=== PATIENT | male | born 1950 | race Caucasian/White ===

== ENCOUNTER 2021-01-01 12:00 | Inpatient (IN) | payer OTHER ==
[~2021-01-01] VITALS: Ht 177.8 cm; Wt 84.4 kg
[2021-01-01 12:07] VITALS: BP 153/93
[2021-01-01 13:41] LABS: BE(vivo) -1.4 mmol/L (-2 to +3); HCO3 21.6 mmol/L (22.0-26.0); PCO2 31.5 mmHg (35.0-45.0); PO2 66.9 mmHg (80.0-100.0); pH 7.454 (7.360-7.450); sO2 94.4 % (92.0-98.0)
[2021-01-01] MEDS ORDERED: NORVASC10 MG PO (14:14)
[2021-01-01] MEDS ORDERED: VITAMIN D310 MC2 PO (14:19)
[2021-01-01] MEDS ORDERED: LISINOPRIL20 MG PO (14:19)
[2021-01-01] MEDS ORDERED: ATENOLOL 100MG100 MG PO (14:20)
[2021-01-01 15:25] VITALS: BP 157/96
--- NOTE | 2021-01-01 19:20 | NUR ---
PT TRANSURED FROM [facility] WITH RESP ISSUES. PT ORINETED TO UNIT AND BED SPACE. MEDS PER SEP - ASSESSMENT CHARTED - GIVEN TYLENOL FOR "LOSENING CHEST CONGESTION " PT STATED IT HELPS. TEX DIET AND FLUIDS. NO CO'S OF NASUEA. PT HAS BEEN VOIDING PER URINAL. WOFE AT THE BEDSIDE. NO CO'S AT THE PRESENT TIME.
[2021-01-01 19:52] VITALS: BP 147/80
[2021-01-01 23:33] VITALS: BP 148/75
[2021-01-02] VITALS (47 sets, daily range): BP systolic 95–159; BP diastolic 63–91
--- NOTE | 2021-01-02 01:11 | NUR ---
ASSUMED PT CARE AT [facility] OF SHIFT, ALERT AND ORIENTED, SR ON TELE, DENIES PAIN, ASSESSMENTS CHARTED, PT ON 10L HIGH FLOW NASAL CANULA, NOTIFIED THE PROVIDER, ORDERS RECEIVED FOR SCHEDULED BREATHING TX, PT NOTED TO HAVE O2SAT OF 87 ON 10L, PUT ON 12L WITH MINIMAL IMPROVEMENT, RT MADE AWARE AND BT GIVEN, PT WAS THEN PUT ON OPTIFLOW ON 40L, WITH FIO2 OF 67, DR CAMARGO NOTIFIED, ORDER FOR BIPAP PRN AND TRANSFER TO ICU RECEIVED, PT IS LAYING DOWN IN BED WITH NO DISTRESS, REPORT CALLED TO NURSE RECEIVING PT; PT TRANFERRED TO ROOM 240 WITH ALL BELONGINGS
[2021-01-02 04:34] LABS: HEMATOCRIT 36.8 % (42.0-52.0); HEMOGLOBIN 12.4 gm/dL (14.0-18.0); MCH 31.9 pg (26.0-34.0); MCHC 33.7 g/dL (28.0-37.0); MCV 94.8 fL (80.0-100.0); PLATELET COUNT 422 thou/uL (150-400); RBC 3.88 mil/uL (4.50-6.00); RDW 13.8 % (10.5-14.5); WBC 23.6 thou/uL (4.0-11.0)
[2021-01-02 05:10] LABS: CALCIUM 9.4 mg/dL (8.5-10.1); CREATININE 1.4 mg/dL (0.7-1.3); MAGNESIUM 2.1 mg/dL (1.8-2.4); POTASSIUM 4.1 mmol/L (3.5-5.1)
[2021-01-02 05:33] LABS: ABSOLUTE NEUTROPHILS 22.4 thou/uL (1.4-8.2); MYELOCYTES 1 %
--- NOTE | 2021-01-02 07:15 | NUR ---
PATIENT ARRIVED AT THE UNIT AT APPROX 0130. PATIENT IS A/OX4. DENIES PAIN. REMAINS ON OPTI-FLOW WITH SATS>94. AFEBRILE.VSS. FAMILY UPDATED. USES URINAL AT BEDSIDE. DENIES NEEDS. WILL KEEP MONITORING
[2021-01-02 09:43] LABS: BE(vivo) -2.3 mmol/L (-2 to +3); HCO3 21.4 mmol/L (22.0-26.0); PCO2 33.6 mmHg (35.0-45.0); PO2 106.2 mmHg (80.0-100.0); pH 7.422 (7.360-7.450)
--- NOTE | 2021-01-02 15:47 | NUR ---
met with patient. speaking with phys outside of room. Patient admits [facility] with acute hypoxic failure. Patient currently on high flow oxygen with possibilty of intubation. Patient reports lives with in independent home. 3 children who live in area and 8 grandchildren. 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 Patient with no hx of dme. Does not use oxygen at home. Patient reports triggered when mowing lawn and needed to begin to mow lawn. Patient reports able to ambulate in home without SOA. Reviewed role of casemgt. Following for dc planning.
--- NOTE | 2021-01-02 17:30 | NUR ---
during shift pt has less of a tendency to tolerate po intake. initially very slight choke and easily resolved. in late afternoon, pt dozing then awakens spontaneously choking (either on saliva or his tongue despite sitting upright in bed), it startles him and he quickly desats into low 80's. no oxygen reserve. encouraging and family to decrease stimulation to allow him and his lungs to rest. pt insisting on having water, however rn refrains from water or pills until sa02 resolves. now pt dozing intermittently with sao2 in 90's.
[2021-01-02 18:55] LABS: ALBUMIN 2.7 g/dL (3.4-5.0); DIRECT BILIRUBIN < 0.1 mg/dL (<0.1-0.2); SGOT 37 U/L (15-37); SGPT 53 U/L (16-63); TOTAL BILIRUBIN 0.4 mg/dL (0.2-1.0); TOTAL PROTEIN 7.7 g/dL (6.4-8.2)
[2021-01-03] VITALS (35 sets, daily range): BP systolic 122–153; BP diastolic 64–97
[2021-01-03 04:03] LABS: HEMATOCRIT 37.8 % (42.0-52.0); HEMOGLOBIN 12.8 gm/dL (14.0-18.0); MCH 31.9 pg (26.0-34.0); MCHC 33.9 g/dL (28.0-37.0); MCV 94.1 fL (80.0-100.0); RBC 4.02 mil/uL (4.50-6.00); RDW 13.1 % (10.5-14.5); WBC 20.7 thou/uL (4.0-11.0)
[2021-01-03 04:12] LABS: CALCIUM 8.9 mg/dL (8.5-10.1); CREATININE 1.1 mg/dL (0.7-1.3)
--- NOTE | 2021-01-03 16:00 | NUR ---
PT RESTING COMFORTABLY, REPOSITIONS SELF FOR COMFORT. OPTI-FLOW TITRATED BY BIBLIOGRAPHIC SERVICES SPECIALIST. PT NOT ABLE TO TOLERATE BIPAP DUE TO CLAUSTERPHOBIA. PRECEDEX GTT FOR ANXIETY. PT AFEBRILE, ADEQUATE UOP, NO BM, POOR APPETITE. AT BEDSIDE, PT AND HAVE BEEN THOUROUGHLY UPDATED AND EDUCATED ON PT CONDITION AND POC. PT SLOWLY PROGRESSING TOWARDS POC.
[2021-01-03 20:06] LABS: ANA INTERPRETATION Negative (Negative)
[2021-01-04] VITALS (42 sets, daily range): BP systolic 115–170; BP diastolic 60–92
--- NOTE | 2021-01-04 05:29 | HC ---
[facility] [address] [place] [address] CONSULTATION Name: MICKEY PRATER Room #: 240-P [facility] IN M.R.#: [id number] Admission: 01/01/21 Attend Phys: Alexis Juarez MD Discharge: Date of : 54 Report #: [id number] THIS REPORT FOR: cc: [facility] - Family physician unknown Adan Finley MD ~ DOC #: [id number] Adan Finley MD DATE OF SERVICE: 01/02/2021 INFECTIOUS DISEASE CONSULTATION ATTENDING PHYSICIAN: Dr. Juarez. REASON FOR EVALUATION: Pneumonitis complicated by respiratory failure. HISTORY OF PRESENT ILLNESS: Chart was reviewed. The patient was examined. A 70-year-old gentleman with apparent history of pulmonary fibrosis, previous strokes who was transferred from [facility] due to progressive weakness with dyspnea and was found to have hypoxemic respiratory failure requiring supplemental oxygen of greater concentration. Spouse was present as well and he notes onset was roughly 2-3 weeks ago, he noted progressive weakness, dyspnea with less and less activity, not clearly had any fevers or chills. Appetite was diminished for a period of time, seems to have improved. Denies significant gastrointestinal-related complaints. No new onset eruptions. He has had some sinus drainage. Has been fairly mild responsive to Mucinex. On questioning, denies any particular exposure history, although he does have a ____ property. He underwent evaluation. Chest x-ray noted diffuse bilateral interstitial prominences, apparently in the outside hospital, had no evidence of PE. Diffuse ground-glass and reticular opacities throughout the lung and did undergo COVID testing x 2, which were both negative. Procalcitonin 0.09. Sed rate was elevated at 116. White count elevated at 23.6, hemoglobin 12.4, marked lymphocytopenia. Urinary antigens for Legionella and pneumococcus were both presumptively negative. Initial ABG showed pH 7.454, pO2 of 66.9 on 10 liters. Repeat blood gas this morning, pH of 7.422, pO2 of 106.2, although he is on an Optiflow at 55 liters, FiO2 of 84%. MRSA was negative. He was placed on combination of broad-spectrum therapy with azithromycin, ceftriaxone and vancomycin. He is generally lucid, although he becomes breathless with speaking. ALLERGIES: None known. MEDICATIONS: Include methylprednisolone 125 q.6, dexmedetomidine, atenolol, lisinopril, amlodipine, pantoprazole, vancomycin, ceftriaxone, azithromycin, subcutaneous heparin, p.r.n. analgesics [place] [address] CONSULTATION Name: MICKEY PRATER Room #: 240-P [facility] IN M.R.#: [id number] Admission: 01/01/21 Attend Phys: Alexis Juarez MD Discharge: Date of : 54 Report #: [id number] PAST MEDICAL HISTORY: As described above. Pulmonary fibrosis, history of hypertension, previous strokes. SOCIAL HISTORY: No ethanol use. No illicit drug use. Nonsmoker. FAMILY HISTORY: Noncontributory. REVIEW OF SYSTEMS: Otherwise, unremarkable. PHYSICAL EXAMINATION: GENERAL: Appears somewhat chronically ill and undernourished. He is generally lucid, although he is dyspneic even at rest with high flow oxygen. VITAL SIGNS: Temperature 97.6 this morning, pulse 81, respirations 39, blood pressure 137/86. SKIN: Warm, dry, no rashes. HEENT: Nasal cannula in place, high flow. Normocephalic. Extraocular muscles intact. NECK: Supple. LUNGS: Few scattered coarse breath sounds. HEART: Distant, regular. I do not appreciate a murmur. ABDOMEN: Soft, nontender, mildly distended. EXTREMITIES: Without edema. No evident rashes. GENITOURINARY AND RECTAL: Deferred. LABORATORY DATA: Recent chest x-ray showed some improvement in interstitial opacities. ABGs: pH 7.422, pCO2 of 33.6, pO2 106.2 on the Optiflow 84% FIO2, 55 liters. White count 23.6, H and H 12.4 and 36.8, platelets of 422. Electrolytes: Sodium 141, potassium 4.1, chloride 104, bicarbonate 24, anion gap of 13, BUN and creatinine 33 and 1.4, glucose of 154. Rheumatoid factor was 11.8, within normal range. Coronavirus testing was negative. Sed rate of 116. Procalcitonin of 0.09. LFTs from the other hospital were negative. Negative viral panel. ASSESSMENT: Pneumonitis, complicated by respiratory failure with acute respiratory distress syndrome, likely acute on chronic. He seemingly has deteriorated, although imaging perhaps is improved, I think it is reasonable to add doxycycline, could have some exposures such as zoonosis. We will also check a TB spot. He noticed history of possible exposure to armadillo and notes there is lots of potential exposure. Discussed in detail with the patient's spouse. MD SUDHIR Francisco/LILA/AARON [facility] [address] [place] [address] CONSULTATION Name: MICKEY PRATER Room #: 240-P ADM IN M.R.#: [id number] Admission: 01/01/21 Attend Phys: Alexis Juarez MD Discharge: Date of : 54 Report #: [id number] <ELECTRONICALLY SIGNED> By: Adan Finley MD 01/04/21 0529 [id number] [id number] Adan Finley MD /nt
[2021-01-04 06:04] LABS: ABSOLUTE NEUTROPHILS 15.5 thou/uL (1.4-8.2); BASOPHILS 0.2 % (0.0-2.0); HEMATOCRIT 38.1 % (42.0-52.0); HEMOGLOBIN 12.6 gm/dL (14.0-18.0); LYMPHOCYTES 3.7 % (24.0-44.0); MCH 31.3 pg (26.0-34.0); MCHC 33.1 g/dL (28.0-37.0); MCV 94.7 fL (80.0-100.0); MONOCYTES 3.6 % (1.0-8.0); PLATELET COUNT 368 thou/uL (150-400); POLYS 92.5 % (36.0-66.0); RBC 4.02 mil/uL (4.50-6.00); RDW 13.2 % (10.5-14.5); WBC 16.8 thou/uL (4.0-11.0)
[2021-01-04 06:08] LABS: CALCIUM 8.9 mg/dL (8.5-10.1); POTASSIUM 4.8 mmol/L (3.5-5.1)
--- NOTE | 2021-01-04 09:05 | NUR ---
PT IS VERY ANXIOUS, CURRENTLY ON PRECEDEX GTT. PT IS CURRENTLY ON OPTIFLOW AND HAS NON-REBREATHER FACE MASK AT BEDSIDE FOR PRN USAGE. PT FREQUENTLY ASKS NURSE WHAT HIS O2 SAT IS PER THE MONITOR. PT NEEDS EXTRA TIME TO TAKE MEDS. PT DOES TAKE MEDS WHOLE BUT VERY SLOWLY AND ONE AT A TIME WITH FREQUENT BREAKS FOR REST IN BETWEEN. PT STATES HE IS WAITING FOR HIS TO ARRIVE BEFORE HE EATS BREAKFAST. WILL CONTINUE TO CLOSELY MONITOR PT. O2 HAS REMAINED >90% THIS SHIFT.
--- NOTE | 2021-01-04 14:16 | NUR ---
PT AND HAD LOTS OF QUESTIONS AFTER DR. CAMARGO'S VISIT. DR. CAMARGO HAD ASKED PT IF HE WAS FEELING TOO FATIGUED WITH BREATHING AND STATED THAT THEY COULD INTUBATE IF HE WAS FEELING TOO WORN OUT. PT STATED NO HE WAS NOT. AFTER DR. CMAARGO LEFT PT'S CAME OUT AND WANTED RN TO TALK TO PT. PT AND PT'S STATED THAT THE PATIENT'S WISHES ARE TO LIVE AND IF THAT REQUIRES INTUBATION THAN THEY ARE ALL FOR IT. THEY JUST DO NOT WANT INTUBATION UNTIL IT IS MEDICALLY NECESSARY AND THE PATIENT FEELS AT THIS MOMENT IN TIME HE IS DOING WELL WITH HIS BREATHING WITH USE OF OPTIFLOW. PT STATES HE WILL LET STAFF KNOW OR HIS KNOW IF HE BEGINS TO FEEL FATIGUED OR STARTS HAVING DIFFICULTY BREATHING. PT DOES NOT WANT PHYSICIANS TO THINK HE IS AGAINST BEING INTUBATED. PT WANTS PHYSICIANS TO KNOW HE INTENDS TO BE A FULL CODE.
--- NOTE | 2021-01-04 19:35 | NUR ---
PT'S REQUESTING A SWALLOW STUDY IN AM. RN DID NOT WITNESS PT HAVING ANY DIFFICULTY WITH SWALLOWING BUT PT IS VERY SLOW TO CHEW AND TIRES VERY EASILY. PT'S REQUESTED MEAL BE CHANGED FROM REGULAR CONSISTENCY TO MECHANICAL GROUND. DIET CONSISTENCY CHANGED PER REQUEST AND PT APPEARED TO BE EATING WITHOUT DIFFICULTY HOWEVER PT'S STATES SHE STILL WANTS A SWALLOW STUDY IN AM BECAUSE AND EVEN POSSIBLY A PUREED DIET. REPORT GIVEN AND THIS INFORMATION PASSED ON TO CIGARETTE PACKER RN.
[2021-01-05] VITALS (22 sets, daily range): BP systolic 110–154; BP diastolic 66–86
[2021-01-05 06:33] LABS: HEMATOCRIT 38.5 % (42.0-52.0); HEMOGLOBIN 12.9 gm/dL (14.0-18.0); MCH 31.3 pg (26.0-34.0); MCHC 33.6 g/dL (28.0-37.0); MCV 93.2 fL (80.0-100.0); RBC 4.13 mil/uL (4.50-6.00); WBC 16.3 thou/uL (4.0-11.0)
[2021-01-05 07:16] LABS: CALCIUM 8.7 mg/dL (8.5-10.1); POTASSIUM 4.4 mmol/L (3.5-5.1)
--- NOTE | 2021-01-05 10:17 | NUR ---
PT STILL SHOWING SYMPTOMS OF ANXIETY THIS MORNING. EVAL FOR PICC LINE TODAY, SLT EVAL IS REQUESTED FROM THE PT AND FAMILY PER RECENT CHANGES TO EATING R/T BREATHING. PT REMAINS ON OPTIFLOW, 80%FIO2, 60LPM. IS AT BEDSIDE, WAS SEEN BY & , EXPLAINED TO THE EVENTS FOR TODAY AND CURRENT CAREPLAN
--- NOTE | 2021-01-05 10:52 | NUR ---
VAT CONSULTED FOR PIV, DISCUSSED WITH DR SEXTON, PIV NOT LASTING BUT FEW HOURS. PICC ORDER OBTAINED. PT'S LABS,MEDS,HX,ORDER AND CONSENT VERIFIED. DISCUEED BENEFITS AND RISK WITH PT AND ,VERBALIZED UNDERSTANDING. TAL SANDOVAL WAS WIDELY PATENT WITH USG. 52CM POWER TL PICC X1 STICK INSERTED TO 0CM EXTERNAL. DIFFICULT DROP HAD TO REPOSITION PT SEVERAL TIMES. CONFIRMED BY PEAKED PWAVES ON 3CG. PICC RELEASED FOR IMMEDIATE USE PER PROTOCOL TO ISACC GOMEZ. PT TOLERATES WELL.
--- NOTE | 2021-01-05 11:40 | NUR ---
Chart review, discussed during los and am rounds. Still requiring HFNC oxygen support, speech eval. unable to visit with vicente denis having ST eval. will cont following as needed for dc needs.
[2021-01-06] VITALS (31 sets, daily range): BP systolic 107–161; BP diastolic 51–83
[2021-01-06 05:04] LABS: HEMATOCRIT 37.6 % (42.0-52.0); HEMOGLOBIN 12.8 gm/dL (14.0-18.0); MCH 31.6 pg (26.0-34.0); MCV 93.1 fL (80.0-100.0); RBC 4.03 mil/uL (4.50-6.00); WBC 21.2 thou/uL (4.0-11.0)
[2021-01-06 05:07] LABS: CALCIUM 8.7 mg/dL (8.5-10.1); POTASSIUM 4.2 mmol/L (3.5-5.1)
--- NOTE | 2021-01-06 09:12 | NUR ---
RN CAME ON SHIFT, PT IS ON BIPAP, HAS BEEN SINCE 0430 THIS AM, SPO2 AT 93 ON BIPAP. RN ASSESSED THE PT WHILE ON OPTIFLOW +NRB, ASSESSING FOR O2 TOLERATION W/O BIPAP. PT IS AROUND 89-90% WHILE SLEEP/RESTING, DESATS TO 78-84% WHILE TAKING PO MEDS W/BREAKS AND NRB USAGE. UPDATED ABOUT CURRENT CLINICAL PICTURE, BRISSA HAD QUESTION REGARDING THE SPO2 AND WHAT THAT NUMBER INDICATED, RN PROVIDED EDUCATION AND STATED THAT DURING ROUNDING, RN WILL DISCUSS CURRENT PULMONARY STATUS W/ THE TEAM THEN PROVIDE UPDATE
--- NOTE | 2021-01-06 13:35 | EKG ---
[place] [address] [address] [facility] [employer] [place] [address] ELECTROCARDIOGRAM REPORT Name: MICKEY PRATER Room #: 240-P [facility] IN M.R.#: [id number] Admission: 01/01/21 Attend Phys: Alexis Juarez MD Discharge: Date of : 54 Report #: [id number] [facility] Test Date: 2021-01-06 Test Time: 10:12:02 Pat Name: MICKEY PRATER Department: Room: 240 P Gender: M Ext Js Developer: CIELO : 1950 Requested By: Alexis Juarez Order Number: [id number] MD: Bhavin Mustafa Measurements Intervals Archbold Rate: 61 P: 21 UT: 172 QRS: -19 QRSD: 112 T: 5 QT: 493 QTc: 497 Interpretive Statements Sinus rhythm Multiple ventricular premature complexes Abnormal R-wave progression, late transition Left ventricular hypertrophy Borderline T abnormalities, inferior leads Borderline prolonged QT interval No previous ECG available for comparison Electronically Signed On 01-06-2021 13:35:22 CDT by Bhavin Mustafa [email or web address] <ELECTRONICALLY SIGNED> By: Bhavin Mustafa MD, [facility] 01/06/21 1335 1012 1012 Bhavin Mustafa MD, [facility] /EPI
[2021-01-06 14:19] LABS: BE(vivo) -7.7 mmol/L (-2 to +3); HCO3 28.2 mmol/L (22.0-26.0); sO2 98.9 % (92.0-98.0)
[2021-01-06 14:20] LABS: pH 6.931 (7.360-7.450)
[2021-01-06 16:33] LABS: BE(vivo) -4.5 mmol/L (-2 to +3); HCO3 31.3 mmol/L (22.0-26.0); PO2 175.4 mmHg (80.0-100.0)
[2021-01-06 16:35] LABS: PCO2 143.3 mmHg (35.0-45.0); pH 6.957 (7.360-7.450)
[2021-01-06 17:31] LABS: BE(vivo) -6.2 mmol/L (-2 to +3); HCO3 24.9 mmol/L (22.0-26.0); PO2 136.7 mmHg (80.0-100.0); sO2 97.6 % (92.0-98.0)
[2021-01-06 17:32] LABS: PCO2 81.2 mmHg (35.0-45.0); pH 7.104 (7.360-7.450)
[2021-01-06 20:10] LABS: HCO3 24.9 mmol/L (22.0-26.0); PCO2 57.1 mmHg (35.0-45.0); PO2 110.1 mmHg (80.0-100.0); pH 7.257 (7.360-7.450); sO2 97.2 % (92.0-98.0)
[2021-01-07] VITALS (52 sets, daily range): BP systolic 102–156; BP diastolic 53–90
[2021-01-07 04:07] LABS: BE(vivo) -0.5 mmol/L (-2 to +3); HCO3 26.2 mmol/L (22.0-26.0); PCO2 51.1 mmHg (35.0-45.0); PO2 102.4 mmHg (80.0-100.0); sO2 97.2 % (92.0-98.0)
[2021-01-07 04:08] LABS: pH 7.327 (7.360-7.450)
[2021-01-07 05:27] LABS: HEMOGLOBIN 11.9 gm/dL (14.0-18.0)
[2021-01-07 05:29] LABS: HEMATOCRIT 36.2 % (42.0-52.0); MCH 31.6 pg (26.0-34.0); MCV 95.9 fL (80.0-100.0); RBC 3.77 mil/uL (4.50-6.00); WBC 27.2 thou/uL (4.0-11.0)
[2021-01-07 05:59] LABS: CALCIUM 8.5 mg/dL (8.5-10.1); CREATININE 1.5 mg/dL (0.7-1.3); POTASSIUM 4.3 mmol/L (3.5-5.1)
--- NOTE | 2021-01-07 07:17 | NUR ---
PATIENT REMAINS ON THE VENT. FENTANYL,VERSED, NIMBEX GTT FOR VENT MANAGEMENT. AFEBRILE. HYPOTENSIVE OTHERWISE VSS. MELCHOR IN PLACE WITH GOOD U/O. FAMILY UPDATED. WILL KEEP MONITORING.
--- NOTE | 2021-01-07 11:51 | NUR ---
vital AF 1.2 goal 70ml/hr with water flush 250 ml every 6hr. Suggest start taper off IVF as tube feed tolerance becomes established.
--- NOTE | 2021-01-07 14:08 | NUR ---
Chart review, discussed during los and am rounds. He was intubated yesterday. Rochelle at bedside often, cm visited just for support. Active listening. gave cm a hug, will cont. following as needed for dc needs.
--- NOTE | 2021-01-07 15:09 | NUR ---
NEMBEX WEANED OFF AND PATIENT NOTED TO RAISE HANDS TOWARDS EET. SOFT WRIST RESTRAINTS APPLIED TO MAINTAINE EET. DR CAMARGO INFORMED AND ORDERS NOTED. EDUCATED ON THE RESTRAINTS. LEVOPHED WEANED OFF MAP > 65 MMHG. TUBE FEEDING INITIATED PER ORDER.
--- NOTE | 2021-01-07 18:42 | NUR ---
PATIENT IS SLOWLY PROGRESSING LEVOPHED WAS WEANED OFF. ANXIOUS WITH ORAL CARE, FENTENYL INCREASED AND LOW DOSE PROPOFOL STARTED. TOLERATING TUBE FEEDING.
[2021-01-07 21:24] LABS: T-SPOT.TB Negative
[2021-01-08] VITALS (34 sets, daily range): BP systolic 107–130; BP diastolic 53–66
[2021-01-08 04:40] LABS: BE(vivo) 0.6 mmol/L (-2 to +3); HCO3 26.1 mmol/L (22.0-26.0); PCO2 45.7 mmHg (35.0-45.0); PO2 68.7 mmHg (80.0-100.0); pH 7.374 (7.360-7.450); sO2 93.3 % (92.0-98.0)
[2021-01-08 05:11] LABS: HEMATOCRIT 28.7 % (42.0-52.0); MCH 32.2 pg (26.0-34.0); MCHC 33.7 g/dL (28.0-37.0); MCV 95.6 fL (80.0-100.0); RDW 13.4 % (10.5-14.5); WBC 16.2 thou/uL (4.0-11.0)
[2021-01-08 05:30] LABS: HEMOGLOBIN 9.7 gm/dL (14.0-18.0)
[2021-01-08 06:09] LABS: CALCIUM 8.3 mg/dL (8.5-10.1); CREATININE 1.5 mg/dL (0.7-1.3); POTASSIUM 3.7 mmol/L (3.5-5.1)
--- NOTE | 2021-01-08 09:53 | NUR ---
ASSUMMED CARE FROM CANDICE GOMEZ AT 0700. PATIENT PLACED ON SEDATION VACATION AT 0830. PLEASE SEE VITAL SIGN SHEET. AFTER 30 MINS ABLE TO SRUGE SHOULDERS, FOLLED SIMPLE COMMANDS. ANXIOUS AND COUGHING WITH SATS FALLING INTO THE LOWER 80'S, TAKING LEO 5 MINS FOR SATS TO RECOVER TO 90. PLACED BACK ON PROPOFOL. MONITOR SR WITH PAC/PVC'S NOTED. 0830 RADIOLOGIST CALLED THAT THE TIP OF THE PICC LINE WAS LOW IN THE RT [facility]. IV TEAM CALLED AT 0830 AND AGAIN AT 0900, PAGED AND CALL RETURNED AT 0956.
--- NOTE | 2021-01-08 11:39 | NUR ---
VAT CHANGED LEFT UPPER ARM PICC DRESSING AND PULLED PICC BACK 4CM, PER RADIOLOGY REPORT THAT TIP OVERLIES RIGHT ATRIUM. PT TO HAVE CHEST CT.
--- NOTE | 2021-01-08 14:00 | NUR ---
TO CT AND BACK PER BED WITH THIS NURSE AND RT ON VENT WITHOUT INCIDENT.
--- NOTE | 2021-01-08 17:36 | NUR ---
RADIOLOGY CT REPORT READ THAT PT PICC NOW WITH TIP OVERLYING SVC.
--- NOTE | 2021-01-08 18:00 | NUR ---
PATIENT IS NOT PROGRESSING TOWARDS OUTCOME GOALS HE IS STILL HAVING HIGH RESIDUALS FROM THE OGT. O2 SAT IN HE UPPER 80'S TO LOWER 90'S, RT NOTIFIED AND FIO2 INCREASED. WILL CONTINUE TO MONITOR. REMAINS SEDATED. PATIENT'S HERE TODAY AND UPDATED ON THE PATIENT'S STATUS,
[2021-01-09] VITALS (26 sets, daily range): BP systolic 101–126; BP diastolic 57–70
[2021-01-09 04:55] LABS: HEMATOCRIT 27.9 % (42.0-52.0); HEMOGLOBIN 9.4 gm/dL (14.0-18.0); MCHC 33.7 g/dL (28.0-37.0); MCV 94.9 fL (80.0-100.0); RBC 2.94 mil/uL (4.50-6.00); WBC 17.5 thou/uL (4.0-11.0)
[2021-01-09 04:57] LABS: BE(vivo) 2.3 mmol/L (-2 to +3); HCO3 27.8 mmol/L (22.0-26.0); PCO2 47.4 mmHg (35.0-45.0); PO2 66.4 mmHg (80.0-100.0); pH 7.386 (7.360-7.450); sO2 92.8 % (92.0-98.0)
[2021-01-09 05:40] LABS: CALCIUM 8.1 mg/dL (8.5-10.1); CREATININE 1.3 mg/dL (0.7-1.3); POTASSIUM 3.8 mmol/L (3.5-5.1)
--- NOTE | 2021-01-09 09:50 | NUR ---
ASSUMED CARE OF PT AT 0700 DR. SEXTON AT BEDSIDE AT 0800, NO NEW ORDERS GIVEN PT'S AT BEDSIDE AT 0921, SHE HAS COME OUT OF THE ROOM EVERY TWO MINUTES SINCE SHE ARRIVED ASKINIG ME QUESTIONS.
--- NOTE | 2021-01-09 10:50 | NUR ---
Bronch atif for today. Discussed during los and am rounds. Remains vented, nutritional support . No anticipated dc over the weekend. Will cont. following as needed for dc needs.
[2021-01-09 11:24] LABS: ALBUMIN 1.9 g/dL (3.4-5.0); DIRECT BILIRUBIN < 0.1 mg/dL (<0.1-0.2); SGOT 23 U/L (15-37); SGPT 56 U/L (16-63); TOTAL BILIRUBIN 0.2 mg/dL (0.2-1.0); TOTAL PROTEIN 5.4 g/dL (6.4-8.2)
[2021-01-09 16:32] LABS: BE(vivo) -1.8 mmol/L (-2 to +3); HCO3 24.2 mmol/L (22.0-26.0); PCO2 46.5 mmHg (35.0-45.0); PO2 73.8 mmHg (80.0-100.0); pH 7.334 (7.360-7.450); sO2 93.9 % (92.0-98.0)
[2021-01-10] VITALS (35 sets, daily range): BP systolic 108–133; BP diastolic 54–75
[2021-01-10 05:03] LABS: CALCIUM 8.1 mg/dL (8.5-10.1); CREATININE 1.4 mg/dL (0.7-1.3); POTASSIUM 3.9 mmol/L (3.5-5.1)
[2021-01-10 05:07] LABS: HEMOGLOBIN 9.8 gm/dL (14.0-18.0); MCH 32.7 pg (26.0-34.0); MCHC 33.9 g/dL (28.0-37.0); MCV 96.3 fL (80.0-100.0); RBC 3.01 mil/uL (4.50-6.00); RDW 13.7 % (10.5-14.5); WBC 17.4 thou/uL (4.0-11.0)
[2021-01-10 05:11] LABS: BE(vivo) -2.2 mmol/L (-2 to +3); HCO3 24.4 mmol/L (22.0-26.0); PCO2 50.8 mmHg (35.0-45.0); PO2 68.3 mmHg (80.0-100.0); sO2 91.6 % (92.0-98.0)
--- NOTE | 2021-01-10 19:45 | NUR ---
PATIENT IS PROGRESSING SLOWLY TOWARDS OUTCOME GOAL. CENTRAL LINE INSERTED AT 1045 WITHOUT INCIDENT. CXR DONE FOR PLACEMENT. RENAL ULTRA SOUND DONE AT BEDSIDE AT 1100. INSULIN DRIP OFF AT 1634, WITH D50 GIVEN FOR BLOOD GLUCOSE OF 63. PATIENT NOTED TO HAVE INTERMITTENT CHILLING, TEMP OF 100.9. DR ZAPIEN NOTIFIED AND ORDERS RECEIVED. PATIENT MORE RESPONSIVE THIS EVENING AND ABLE TO CONSUME SOME DIET WITH ASSISTANCE. URINE OUTPUT GREATER THAN 100 ML/HR TODAY. WILL CONTINUE TO MONITOR.
--- NOTE | 2021-01-10 19:50 | NUR ---
PATIENT IS NOT PROGRESSING TOWARDS OUTCOME GOALS PEEP ON VENTILATOR WAS INCREASED FROM 8CM TO 12 CM TODAY. SLOWLY ATTEMPTING TO RESUME TUBE FEEDING RESIDUALS HAVE DECREASED THROUGH OUT THE DAY. URINE OUTPUT GREATER THAN 6OML/HR, AT BEDSIDE AND UPDATED ON POC AND PATIENT STATUS.
[2021-01-11] VITALS (46 sets, daily range): BP systolic 94–137; BP diastolic 47–75
[2021-01-11 04:35] LABS: BE(vivo) 2.7 mmol/L (-2 to +3); HCO3 28.4 mmol/L (22.0-26.0); PCO2 48.5 mmHg (35.0-45.0); PO2 66.1 mmHg (80.0-100.0); pH 7.385 (7.360-7.450); sO2 92.6 % (92.0-98.0)
[2021-01-11 05:16] LABS: HEMATOCRIT 30.4 % (42.0-52.0); HEMOGLOBIN 10.1 gm/dL (14.0-18.0); MCH 31.9 pg (26.0-34.0); MCHC 33.3 g/dL (28.0-37.0); MCV 95.8 fL (80.0-100.0); RBC 3.18 mil/uL (4.50-6.00); RDW 13.6 % (10.5-14.5); WBC 21.9 thou/uL (4.0-11.0)
[2021-01-11 05:24] LABS: CALCIUM 8.2 mg/dL (8.5-10.1); CREATININE 1.3 mg/dL (0.7-1.3); POTASSIUM 4.7 mmol/L (3.5-5.1)
--- NOTE | 2021-01-11 07:27 | NUR ---
PT REMAINS INTUBATED AND SEDATED WITH FENTANY,VERSED AND PROPOFOL.FIO2 DECREASED FROM 70% TO 60% AND PT BEEN TOLERATING W/O2 SAT RANGING 92-96%.PT NOT TOLERATING TUBE FEEDINGS EVEN A THE LOWEST RATE OF 10%.PT HAVING LARGE AMOUNT OF RESIDUAL>150CC.TUBE FEEDINGS ON HOLD AT THIS TIME.ABD SOFT,BS VEX4 QUADS.MELCHOR DD WIH UO OF >50CC/HR,TOTAL OU/12HR 1375CC.SR/SB ON MONITOR.ASSESSMENT COMPLETED DOCUMENTED.NO SIGNIFICANT CHANGES NOTED AT THIS TIME.
--- NOTE | 2021-01-11 11:24 | NUR ---
PT IS NOT PROGRESSING TOWARDS DISCHARGE AT THIS TIME, INCREASING NEED FOR FIO2 DURING THIS SHIFT. RN HAD NOTED THAT PRIOR TO RN'S ASSUMPTION OF CARE FOR THIS PT THAT THE FRONT TEETH ON THE PT IS VERY LOOSE AND THE GUMS HAVE RECEEDED, ANNOTATING THAT THIS WAS A PRIOR TO RN ARRIVAL PHENOMENA LUNG SOUNDS ARE COARSE, PT UPDATED ON CARE PLAN FOR TODAY, UPDATED, HAD QUESTIONS REGARDING THE BIOPSY FROM THE BRONCH AND MEDICAL RECORDS, RN WAS NOT GIVEN THIS INFO DURING REPORT, RN STATED THAT HE WILL LOOK INTO IT AND GET BACK. BRISSA () IS CURRENTLY AT BEDSIDE, AND EXPRESSED GRATITUDE FOR TREATMENT BEING PROVIDED.
[2021-01-12] VITALS (41 sets, daily range): BP systolic 88–136; BP diastolic 39–68
[2021-01-12 04:41] LABS: HEMATOCRIT 29.3 % (42.0-52.0); HEMOGLOBIN 9.7 gm/dL (14.0-18.0); MCH 31.5 pg (26.0-34.0); MCHC 33.1 g/dL (28.0-37.0); MCV 95.4 fL (80.0-100.0); RBC 3.07 mil/uL (4.50-6.00); RDW 13.5 % (10.5-14.5); WBC 20.9 thou/uL (4.0-11.0)
--- NOTE | 2021-01-12 04:42 | NUR ---
PT REMAINS ON VENT/SEDATED.PROPOFOL,VERSED AND FENTANYL FOR VENT MANAGEMENT.FIO2 INCREASED TO 80% D/T PT DESATING TO LOWER 80S.PT ALSO HAD A SMALL CUFF LEAK THAT WAS FIXED W/O FURTHER ISSUES.MELCHOR DD,ADEQUATE UO.SR ON MONITOR.TUBE FEEDINGS AT 20CC/HR,TOLERATING W/MINIMAL RESIDUAL<50CC.NO SIGNIFICANT PROGRESS NOTED AT THIS TIME.
[2021-01-12 04:57] LABS: CALCIUM 7.9 mg/dL (8.5-10.1); CREATININE 1.5 mg/dL (0.7-1.3); POTASSIUM 4.7 mmol/L (3.5-5.1)
[2021-01-12 05:05] LABS: BE(vivo) 3.2 mmol/L (-2 to +3); HCO3 30.1 mmol/L (22.0-26.0); PCO2 57.4 mmHg (35.0-45.0); PO2 84.5 mmHg (80.0-100.0); pH 7.338 (7.360-7.450); sO2 95.6 % (92.0-98.0)
--- NOTE | 2021-01-12 10:33 | NUR ---
PT IS NOT PROGRESSING TOWARDS DISCHARGE AT THIS TIME, ONLY BM PRESENT IS THE SMEAR FROM YESTERDAY, CONTINUING ON WITH TREATMENT FOR ILEUS, PT IS TOLERATING TUBE FEEDING OKAY, WILL ADVANCE TO 20cc WHEN READY. FAMILY AT BEDSIDE, EXPLAINED WHAT THE NUMBERS ON THE MONITOR DISPLAY. FAMILY HAD ASKED ABOUT WHEN REQUESTED PAPERWORK WILL COME, TO WHICH RN REPLIED THAT HE DOES NOT KNOW AT THIS TIME AND WILL UPDATE WHEN FOUND, CONTINUING TO MONITOR
--- NOTE | 2021-01-12 15:01 | NUR ---
Chart review, discussed during am rounds and Los. Cont to require vent support. T.F at 20cc/hr nutritional support. Family and cont to visit at bedside. FIO2 80 with peep 12. Bedside has spoke with family at bedside, will cont following as needed for dc needs.
[2021-01-13] VITALS (35 sets, daily range): BP systolic 90–154; BP diastolic 45–90
[2021-01-13 07:47] LABS: HCO3 29.3 mmol/L (22.0-26.0); PCO2 60.3 mmHg (35.0-45.0); pH 7.304 (7.360-7.450); sO2 94.8 % (92.0-98.0)
[2021-01-13 09:55] LABS: HEMATOCRIT 31.2 % (42.0-52.0); HEMOGLOBIN 10.1 gm/dL (14.0-18.0); MCH 31.2 pg (26.0-34.0); MCHC 32.5 g/dL (28.0-37.0); MCV 95.8 fL (80.0-100.0); PLATELET COUNT 172 thou/uL (150-400); RBC 3.25 mil/uL (4.50-6.00); RDW 13.5 % (10.5-14.5); WBC 24.6 thou/uL (4.0-11.0)
[2021-01-13 10:14] LABS: ALBUMIN 1.8 g/dL (3.4-5.0); CALCIUM 8.2 mg/dL (8.5-10.1); CREATININE 1.6 mg/dL (0.7-1.3); POTASSIUM 4.9 mmol/L (3.5-5.1); TOTAL BILIRUBIN 0.3 mg/dL (0.2-1.0); TOTAL PROTEIN 5.5 g/dL (6.4-8.2)
[2021-01-13 10:51] LABS: ABSOLUTE NEUTROPHILS 23.4 thou/uL (1.4-8.2); METAMYELOCYTES 1 %; PLATELET ESTIMATE NORMAL
--- NOTE | 2021-01-13 19:48 | NUR ---
NOT PROGRESSING TOWARD GOALS. IN TWICE TODAY,STAYED MOST OF pNOON.LOTS OF EMO SUPPORT,ENC GIVEN.--VW
[2021-01-14] VITALS (25 sets, daily range): BP systolic 92–167; BP diastolic 47–98
--- NOTE | 2021-01-14 16:06 | PATH ---
[facility] [address] [place] [address] PATHOLOGY RPT PROCEDURE Name: MICKEY PRATER Room #: 240-P ADM IN M.R.#: [id number] Admission: 01/01/21 Date of : 54 Discharge: Report #: [id number] Path Case #: [id number] Note [facility] Accession Number: [id number] TESTS RESULT FLAG UNITS REF RANGE LAB Clinician Provided Cytology Information No. of containers..01 Other (Miscellaneous) Source: 01 RUL BAL DIAGNOSIS: 02 RUL BAL NEGATIVE FOR MALIGNANT EPITHELIAL CELLS. PULMONARY MACROPHAGES PRESENT, INDICATIVE OF LOWER RESPIRATORY TRACT SAMPLING. REACTIVE BRONCHIAL CELLS ARE PRESENT. Signed out by: Aurea Singh MD, Pathologist NPI- [id number] Performed by: Arnulfo Rankin, Correctional Nurse ([facility]) Gross description: 01 7ML, CLOUDY PINK, 1 TP /LCS 01/13/2021 0112 Local FLAG LEGEND: L-Low Normal,H-High Normal,LL-Alert Low,HH-Alert High <-Panic Low,>-Panic High,A-Abnormal,AA-Critical Abnormal Performed at: [address] [place] [address] Deandre Cervantes MD, [address] [address] Aurea Singh MD, Specimen Comment: A courtesy copy of this report has been sent to [phone], [phone] Specimen Comment: [phone] Specimen Comment: Report sent to / DR CAMARGO Specimen Comment: A duplicate report has been generated due to demographic updates. Performed at: [address], [place], [place] [id number] MD Deandre Cervantes MD Phone: [phone]
--- NOTE | 2021-01-14 16:41 | NUR ---
ASSUMED CARE AT 0700. PATIENT SLOWLY PROGRESSING TOWARDS THE PLAN OF CARE HOWEVER STILL HAVING HIGH OXYGEN DEMANDS. PATIENT'S CAME TO VISIT AT 1000 AND IS STILL IN ROOM WITH PATIENT. SHE HAS SPOKEN TO DR. SEXTON.
[2021-01-15] VITALS (16 sets, daily range): BP systolic 106–157; BP diastolic 58–87
[2021-01-15 11:11] LABS: CALCIUM 8.2 mg/dL (8.5-10.1); CREATININE 1.6 mg/dL (0.7-1.3); POTASSIUM 4.5 mmol/L (3.5-5.1)
[2021-01-15 14:08] LABS: BE(vivo) 8.8 mmol/L (-2 to +3); HCO3 34.9 mmol/L (22.0-26.0); PCO2 55.4 mmHg (35.0-45.0); PO2 75.5 mmHg (80.0-100.0); pH 7.417 (7.360-7.450); sO2 95.1 % (92.0-98.0)
[2021-01-16] VITALS (22 sets, daily range): BP systolic 93–163; BP diastolic 53–90
[2021-01-16 05:20] LABS: HEMATOCRIT 32.7 % (42.0-52.0); HEMOGLOBIN 10.7 gm/dL (14.0-18.0); MCH 31.6 pg (26.0-34.0); MCHC 32.6 g/dL (28.0-37.0); MCV 96.9 fL (80.0-100.0); PLATELET COUNT 120 thou/uL (150-400); RBC 3.37 mil/uL (4.50-6.00); RDW 13.7 % (10.5-14.5); WBC 23.6 thou/uL (4.0-11.0)
[2021-01-16 05:33] LABS: ALBUMIN 1.9 g/dL (3.4-5.0); CALCIUM 8.1 mg/dL (8.5-10.1); CREATININE 1.4 mg/dL (0.7-1.3); POTASSIUM 4.4 mmol/L (3.5-5.1); TOTAL BILIRUBIN 0.3 mg/dL (0.2-1.0); TOTAL PROTEIN 5.6 g/dL (6.4-8.2)
--- NOTE | 2021-01-16 07:34 | NUR ---
PATIENT APPEARS COMFORTABLE ON VENT. SUCTIONING SMALL THICK WHITE. PATIENT HAS GOOD COUGH TUBE PLACEMENT CORRECT HME CHANGE. PATIENT PRESSURES ON VENT 35-37. TITRATED OXYGEN FRON 80% TO 75%
[2021-01-16 07:49] LABS: BE(vivo) 12.7 mmol/L (-2 to +3); HCO3 39.4 mmol/L (22.0-26.0); PCO2 60.4 mmHg (35.0-45.0); PO2 71.2 mmHg (80.0-100.0); pH 7.432 (7.360-7.450); sO2 94.3 % (92.0-98.0)
[2021-01-16 10:46] LABS: ABSOLUTE NEUTROPHILS 22.7 thou/uL (1.4-8.2); METAMYELOCYTES 1 %
[2021-01-16 10:47] LABS: ANISOCYTOSIS SLIGHT
--- NOTE | 2021-01-16 12:26 | NUR ---
Discussed during am rounds and los. Remains on vent, nutritional support. No anticipated dc over the weekend. Cm visited with Rochelle, no concerns or needs voiced. Will cont. following as needed for dc needs.
[2021-01-17] VITALS (46 sets, daily range): BP systolic 89–181; BP diastolic 43–109
[2021-01-17 02:47] LABS: ABSOLUTE NEUTROPHILS 24.2 thou/uL (1.4-8.2); HEMATOCRIT 31.8 % (42.0-52.0); HEMOGLOBIN 10.4 gm/dL (14.0-18.0); LYMPHOCYTES 2.9 % (24.0-44.0); MCH 31.4 pg (26.0-34.0); MCHC 32.7 g/dL (28.0-37.0); MCV 95.8 fL (80.0-100.0); PLATELET COUNT 93 thou/uL (150-400); POLYS 95.1 % (36.0-66.0); RBC 3.31 mil/uL (4.50-6.00); RDW 13.7 % (10.5-14.5); WBC 25.4 thou/uL (4.0-11.0)
[2021-01-17 03:02] LABS: ALBUMIN 1.6 g/dL (3.4-5.0); CALCIUM 7.5 mg/dL (8.5-10.1); CREATININE 1.2 mg/dL (0.7-1.3); POTASSIUM 3.8 mmol/L (3.5-5.1); TOTAL BILIRUBIN 0.3 mg/dL (0.2-1.0); TOTAL PROTEIN 5.2 g/dL (6.4-8.2)
[2021-01-17 04:42] LABS: BE(vivo) 9.9 mmol/L (-2 to +3); PCO2 49.3 mmHg (35.0-45.0); PO2 66.7 mmHg (80.0-100.0); pH 7.469 (7.360-7.450); sO2 94.1 % (92.0-98.0)
[2021-01-17 16:57] LABS: BF NUCLEATED CELLS 8276 /mm3; BF RBC 4996 /mm3
[2021-01-17 17:25] LABS: TOTAL VOLUME 20 mL
[2021-01-17 17:26] LABS: CLARITY CLOUDY; COLOR STRAW
--- NOTE | 2021-01-17 18:20 | NUR ---
PATIENT CONT ON SEDATION AT THIS TIME. PAIN IS ALSO BEING CONTROLLED WITH FENTANYL. TURNED Q2. RECTAL TUBE AND MELCHOR IN PLACE. PICC LINES FLUSHING WITH NO DIFFICULTY. HAD BRONCHOSCOPY DONE TIS AFTERNOON AND TOLERATED WELL. WILL CONT WITH PLAN OF CARE.
[2021-01-17 19:14] LABS: BF MACROPHAGE 0 %; BF NEUTROPHILS 99 %; SOURCE LUL BAL
[2021-01-18] VITALS (49 sets, daily range): BP systolic 90–157; BP diastolic 45–85
--- NOTE | 2021-01-18 06:00 | NUR ---
REMAINS INTUBATED AND SEDATED SINUS RHYTHM. EXTREMITIES FLACCID FOLLOWS NO COMMANDS. 500 CC UO THIS SHIFT. SCAMT AMT BROWN LIQ STOOL\ FROM FMS. NOT PROGRESSING TOWARD GOALS.
[2021-01-18 06:14] LABS: HEMATOCRIT 29.5 % (42.0-52.0); HEMOGLOBIN 9.5 gm/dL (14.0-18.0); MCH 31.5 pg (26.0-34.0); MCHC 32.4 g/dL (28.0-37.0); MCV 97.4 fL (80.0-100.0); RBC 3.02 mil/uL (4.50-6.00); RDW 13.8 % (10.5-14.5); WBC 25.8 thou/uL (4.0-11.0)
[2021-01-18 06:31] LABS: ALBUMIN 1.6 g/dL (3.4-5.0); ANION GAP < 0 mmol/L (7-16); BUN 88 mg/dL (7-18); CALCIUM 8.2 mg/dL (8.5-10.1); CHLORIDE 115 mmol/L (98-107); CO2 41 mmol/L (21-32); CREATININE 1.3 mg/dL (0.7-1.3); GLUCOSE 123 mg/dL (74-106); POTASSIUM 4.9 mmol/L (3.5-5.1); SGOT 21 U/L (15-37); SGPT 42 U/L (16-63); SODIUM 155 mmol/L (136-145); TOTAL BILIRUBIN 0.3 mg/dL (0.2-1.0)
--- NOTE | 2021-01-18 13:33 | NUR ---
ASSUMED CARE OF PATIENT AT 0600. PATIENT HAS BEEN HAVING TROUBLE MAINTAINING HIS SATURATION TODAY. I HAVE PLACED HIM ON 12 OF PEEP AND ALSO 100% TO MAINTAIN HIS SATURATION. AN CXR WAS PERFORMED TO VERIFY THAT THERE WAS NO PNEUMOTHORAX PRESENT. DR LARA WAS NOTIFIED OF THE CHANGE IN SATRUATION- AND WILL CONTINUE TO MONITOR.
[2021-01-19] VITALS (48 sets, daily range): BP systolic 100–139; BP diastolic 48–87
[2021-01-19 04:46] LABS: BE(vivo) 15.2 mmol/L (-2 to +3); pH 7.338 (7.360-7.450); sO2 96.4 % (92.0-98.0)
[2021-01-19 04:47] LABS: PCO2 83.9 mmHg (35.0-45.0)
[2021-01-19 05:33] LABS: ABSOLUTE NEUTROPHILS 26.4 thou/uL (1.4-8.2); HEMATOCRIT 30.5 % (42.0-52.0); HEMOGLOBIN 9.7 gm/dL (14.0-18.0); LYMPHOCYTES 1.9 % (24.0-44.0); MCH 31.3 pg (26.0-34.0); MCHC 31.7 g/dL (28.0-37.0); MCV 98.5 fL (80.0-100.0); MONOCYTES 1.2 % (1.0-8.0); PLATELET COUNT 73 thou/uL (150-400); POLYS 96.9 % (36.0-66.0); RBC 3.09 mil/uL (4.50-6.00); RDW 14.1 % (10.5-14.5); WBC 27.3 thou/uL (4.0-11.0)
[2021-01-19 05:58] LABS: ALBUMIN 1.7 g/dL (3.4-5.0); CALCIUM 8.5 mg/dL (8.5-10.1); CREATININE 1.3 mg/dL (0.7-1.3); POTASSIUM 4.8 mmol/L (3.5-5.1); TOTAL BILIRUBIN 0.3 mg/dL (0.2-1.0); TOTAL PROTEIN 5.4 g/dL (6.4-8.2)
--- NOTE | 2021-01-19 10:45 | NUR ---
PT IS NOT PROGRESSING TOWARDS DISCHARGE AT THIS TIME, TODAY FRENCH DAY 13TH OF BEING ON THE VENTILATOR, SINCE THEN PT HAS NOT PROGRESSED. CURRENT PEEP IS AT 12 WITH FIO2 95% ON 35 PRESSURE CONTROL SETTING. AT BEDSIDE DISCUSSED WANTING TO SPEAK WITH CASEMANAGEMENT FOR REASONS UNKOWN, WILL HAVE TO DEFER TO CM'S NOTE, PER , BIOLOGICAL CHILDREN(THAT ARE NOT HER'S) WANT TO FOR GO WITH TRACH/PEG, WHILST IS "OKAY WITH PT GOING TO [facility]" STATED WHILE TEARY EYED. RN CONTACTED . ALSO WANTED TO SPEAK WITH NEWSPAPER MANAGER, RN TO CONTACT NOW
--- NOTE | 2021-01-19 10:50 | NUR ---
Chart review, discussed during am round and los. Remains on vent, TF nutritional support. Cm notified by bedside nurse that is here and wants to talk with sw. CM RN visited with her outside of room, r/t she did not want vicente to here what she was say. Active listen and support during entire visit, she was tearful. She stated she as been talking with step kids and they at leaning towards trach because they just want to be able to talk with him again and have grandkids talk with him again. this is crazy he was fine one day and they not fine. Need prices on cremation, have 2 churches where we would have celebration of life. 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 Education that she going to cont to talk with family but i know he would not want to live on tube, and been looking into skilled rehab because he will need more help if he gets trach. Education on [facility], provided her with names of ([facility], [facility] and [facility]) and education that vent support would need to be less in order to get trach, when MD say safe to do so. PEEP of 12, FIO2 95%. She stated thank you. and family still discussing. Will cont following as needed for dc needs.
--- NOTE | 2021-01-19 12:54 | EKG ---
[address] [place] [address] ELECTROCARDIOGRAM REPORT Name: MICKEY PRATER Room #: 240-P ADM IN M.R.#: [id number] Admission: 01/01/21 Attend Phys: Alexis Juarez MD Discharge: Date of : 54 Report #: [id number] [facility] Test Date: 2021-01-19 Test Time: 12:46:19 Pat Name: MICKEY PRATER Department: Room: 240 P Gender: M Supervisor Nurse: JENNY : 1950 Requested By: Joao Olivares Order Number: [id number] MD: Bhavin Mustafa Measurements Intervals [place] Rate: 116 P: TN: QRS: -13 QRSD: 95 T: 128 QT: 309 QTc: 430 Interpretive Statements Atrial fibrillation Paired ventricular premature complexes LVH with secondary repolarization abnormality Inferior infarct, old Compared to ECG 01/06/2021 10:12:02 Early repolarization now present Myocardial infarct finding now present Q waves now present Sinus rhythm no longer present T-wave abnormality no longer present Electronically Signed On 01-19-2021 12:54:19 CDT by Bhavin Mustafa [email or web address] <ELECTRONICALLY SIGNED> By: Bhavin Mustafa MD, FAC 01/19/21 1254 1246 1246 Bhavin Mustafa MD, [facility] /EPI
[2021-01-19 15:56] LABS: URINE BILIRUBIN NEGATIVE (Negative); URINE BLOOD 2+ (Negative); URINE COLOR YELLOW; URINE GLUCOSE-RANDOM* 1+ (Negative); URINE KETONES NEGATIVE (Negative); URINE LEUKOCYTES-REFLEX NEGATIVE (Negative); URINE NITRITE-REFLEX NEGATIVE (Negative); URINE PROTEIN (DIPSTICK) TRACE (Negative); URINE SPECIFIC GRAVITY 1.025 (1.005-1.035); URINE UROBILINOGEN 0.2 E.U./dl (0.2-1.0)
[2021-01-19 16:04] LABS: URINE CLARITY SL HAZY
[2021-01-19 16:06] LABS: SQUAMOUS None Seen /LPF (0-3); URINE WBC-REFLEX 0-5 Rare /HPF (0-5)
[2021-01-19 16:07] LABS: BACTERIA-REFLEX 1-9 Few /HPF (None Seen); CASTS None Seen /LPF (None Seen); CRYSTALS None Seen /LPF (None Seen); URINE RBC 3-10 Few /HPF (NONE SEEN); YEAST-REFLEX Present (None Seen)
[2021-01-20] VITALS (42 sets, daily range): BP systolic 87–120; BP diastolic 44–58
[2021-01-20 04:35] LABS: CALCIUM 8.1 mg/dL (8.5-10.1); CREATININE 1.5 mg/dL (0.7-1.3); POTASSIUM 4.7 mmol/L (3.5-5.1)
--- NOTE | 2021-01-20 10:33 | NUR ---
PT IS NOT PROGRESSING TOWARDS DISCHARGE AT THIS TIME, DISCUSSED IN LENGTH WITH PATIENT REGARDING CURRENT CLINICAL PRESENTATION, POSSIBLITY OF TRACH/PEG, THE LIKELY OUTCOMES AND PERSONAL BELIEFS. HAS BEEN CONSULTED AND NOTIFIED BY THIS RN. PT HAD A 300 RESIUDAL ON 40CC/HR RATE. GIVEN PT IS NEEDING NG TUBE AMIODARONE, AMIO/GUAFIENESIN WAS ADMINISTERED AND, 60CC OF RESIDUAL WAS REINTRODUCED TO THE PT, AND TUBE FEEDING HELD UNTIL NEXT CHECK TO INSURE PT'S TOLERANCE OF. PT SEEN OCCASIONALLY BREATHING IN IRREGULAR PATTERN. NO AFIB RHYTHM SEEN FOR NOW, RN TO CONTINUE TO MONITOR FOR CHANGES
[2021-01-21] VITALS (48 sets, daily range): BP systolic 89–117; BP diastolic 44–63
--- NOTE | 2021-01-21 10:42 | NUR ---
PER GAIL, FAMILY TO WITHDRAW CARE ON TUESDAY. RHYTHM CHANGES THIS MORNING FROM SR W/ PVCs TO AFIV ACCOMPANIED BY [facility]. NO BMP RAN THIS MORNING, RN CONTACTED , WAS ABLE TO RETRIEVE ORDER FROM [facility], BMP SENT INTO LAB, AMIODARONE LOADING DOSE ORDERED BY [facility], ADMINISTERING RIGHT NOW, PT CONVERTED BACK TO SR ON OWN AFTER FEW BEAT RUNS OF [facility].
--- NOTE | 2021-01-21 10:43 | NUR ---
Dr plasencia [employer] here for visit this am and spoke with his . Plan to work towards comfort care and palliative extubate on tuesday01/23/21 when his kids can come in around 11am. vicente cont. to require vent support. Will cont following as needed for dc needs.
[2021-01-21 10:46] LABS: CALCIUM 7.7 mg/dL (8.5-10.1)
[2021-01-21 11:30] LABS: CREATININE 2.7 mg/dL (0.7-1.3)
[2021-01-21 18:23] LABS: BE(vivo) 3.7 mmol/L (-2 to +3); HCO3 32.1 mmol/L (22.0-26.0); PO2 98.2 mmHg (80.0-100.0); pH 7.246 (7.360-7.450); sO2 96.1 % (92.0-98.0)
[2021-01-21 18:24] LABS: PCO2 75.5 mmHg (35.0-45.0)
[2021-01-22] VITALS (21 sets, daily range): BP systolic 95–137; BP diastolic 49–81
[2021-01-22 05:02] LABS: BE(vivo) 5.7 mmol/L (-2 to +3); HCO3 32.7 mmol/L (22.0-26.0); PO2 86.3 mmHg (80.0-100.0); pH 7.317 (7.360-7.450); sO2 95.5 % (92.0-98.0)
[2021-01-22 05:03] LABS: PCO2 65.4 mmHg (35.0-45.0)
[2021-01-22 05:13] LABS: MCV 96.5 fL (80.0-100.0); MONOCYTES 0.7 % (1.0-8.0)
[2021-01-22 05:15] LABS: ABSOLUTE NEUTROPHILS 14.9 thou/uL (1.4-8.2); LYMPHOCYTES 1.2 % (24.0-44.0); MCH 32.3 pg (26.0-34.0); MCHC 33.5 g/dL (28.0-37.0); PLATELET COUNT 42 thou/uL (150-400); POLYS 98.1 % (36.0-66.0); RDW 13.3 % (10.5-14.5); WBC 15.2 thou/uL (4.0-11.0)
[2021-01-22 05:27] LABS: ALBUMIN 1.9 g/dL (3.4-5.0); CALCIUM 7.7 mg/dL (8.5-10.1); CREATININE 3.2 mg/dL (0.7-1.3); TOTAL BILIRUBIN 0.4 mg/dL (0.2-1.0); TOTAL PROTEIN 4.7 g/dL (6.4-8.2)
[2021-01-22 05:36] LABS: HEMOGLOBIN 6.5 gm/dL (14.0-18.0)
[2021-01-22 05:37] LABS: HEMATOCRIT 19.3 % (42.0-52.0)
--- NOTE | 2021-01-22 10:47 | EKG ---
[address] [address] ELECTROCARDIOGRAM REPORT Name: MICKEY PRATER Room #: 240-P ADM IN M.R.#: [id number] Admission: 01/01/21 Attend Phys: Alexis Juarez MD Discharge: Date of : 54 Report #: [id number] [facility] Test Date: 2021-01-22 Test Time: 04:35:30 Pat Name: MICKEY PRATER Department: Room: 240 P Gender: M Sound Editor: UNKNOWN : 1950 Requested By: Alexis Juarez Order Number: [id number] MD: Bhavin Mustafa Measurements Intervals [place] Rate: 100 P: NC: QRS: 3 QRSD: 97 T: 152 QT: 327 QTc: 422 Interpretive Statements Atrial fibrillation Paired ventricular premature complexes Repol abnrm suggests ischemia, anterolateral Compared to ECG 01/19/2021 12:46:19 Possible ischemia now present Left ventricular hypertrophy no longer present Myocardial infarct finding no longer present Electronically Signed On 01-22-2021 10:47:04 CDT by Bhavin Mustafa [email or web address] <ELECTRONICALLY SIGNED> By: Bhavin Mustafa MD, [facility] 01/22/21 1047 0435 0435 Bhavin Mustafa MD, [facility] /EPI
[2021-01-22 16:39] LABS: HEMATOCRIT 25.6 % (42.0-52.0)
[2021-01-22 16:51] LABS: HEMOGLOBIN 8.5 gm/dL (14.0-18.0)
[2021-01-23] VITALS (10 sets, daily range): BP systolic 114–135; BP diastolic 70–82
--- NOTE | 2021-01-23 10:03 | NUR ---
and long time friend at bedside, spoke at length with Dr. Ho about process. Awaiting arrival of pt sons to bedside.
--- NOTE | 2021-01-23 11:14 | NUR ---
Pt children at bedside with pt . Awaiting go ahead from family to proceed.
--- NOTE | 2021-01-23 11:15 | NUR ---
Discussed during am rounds and los, family still plans on withdrawing care around 1100. Comfort care orders in placed for when needed. Cm to see if or children need support and the curtain was closed and family wanted so time alone with him. Will cont. following as needed for dc needs.
--- NOTE | 2021-01-23 12:24 | NUR ---
2 RN verification TOD at 1213. Family at bedside.
== END 2021-01-23 16:01 | DRG 207 ==
LOC: 2N 12:00 → ICU 12:01
PROVIDERS: Internal Medicine Pulmonary Disease; Nurse Practitioner; Nurse Practitioner Adult Health; Pediatrics; Specialist; ADMIT Hospitalist; ATTEND Hospitalist
PROC: 5A0955A Assistance with Respiratory Ventilation, Greater than 96 Consecutive Hours, High Flow/Velocity Cannula (ICD-10-PCS; principal; 2021-01-01)
PROC: 02H633Z Insertion of Infusion Device into Right Atrium, Percutaneous Approach (ICD-10-PCS; 2021-01-05)
PROC: 0BJ08ZZ Inspection of Tracheobronchial Tree, Via Natural or Artificial Opening Endoscopic (ICD-10-PCS; 2021-01-06)
PROC: 5A1955Z Respiratory Ventilation, Greater than 96 Consecutive Hours (ICD-10-PCS; 2021-01-06)
PROC: 0BH17EZ Insertion of Endotracheal Airway into Trachea, Via Natural or Artificial Opening (ICD-10-PCS; 2021-01-06)
PROC: 0B9C8ZX Drainage of Right Upper Lung Lobe, Via Natural or Artificial Opening Endoscopic, Diagnostic (ICD-10-PCS; 2021-01-09)
PROC: 0B9J8ZX Drainage of Left Lower Lung Lobe, Via Natural or Artificial Opening Endoscopic, Diagnostic (ICD-10-PCS; 2021-01-17)
DX: J96.01 Acute respiratory failure with hypoxia (principal); J18.9 Pneumonia, unspecified organism; N17.0 Acute kidney failure with tubular necrosis; I47.1 Supraventricular tachycardia; K56.7 Ileus, unspecified; E87.0 Hyperosmolality and hypernatremia; I48.20 Chronic atrial fibrillation, unspecified; I10 Essential (primary) hypertension; Z20.822 Contact with and (suspected) exposure to COVID-19; D72.829 Elevated white blood cell count, unspecified; I27.20 Pulmonary hypertension, unspecified; Z66 Do not resuscitate; D64.9 Anemia, unspecified; R57.1 Hypovolemic shock; R73.9 Hyperglycemia, unspecified; T38.0X5A Adverse effect of glucocorticoids and synthetic analogues, initial encounter; E87.5 Hyperkalemia; Z51.5 Encounter for palliative care; Z86.73 Personal history of transient ischemic attack (TIA), and cerebral infarction without residual deficits; Y92.89 Other specified places as the place of occurrence of the external cause
CPT/HCPCS: 10078; 10081; 27000; 85076